=== PATIENT | female | born 1960 | race Caucasian/White ===

== ENCOUNTER 2020-02-22 12:53 | Outpatient (CLI) | payer BC, SELFPAY ==
--- NOTE | 2020-02-22 13:30 | USCV_ITS ---
Charlene Humphries Age: 59 Gender: F : 1960 Exam Date: 02/22/2020 13:05 Ordering Phys: Matthieu Gonzalez MD ([email or web address]) Technologist: Roberto De Los Santos Exam Location: [facility] [place]ication: SOB BP: 120 / 73 HR: 64 Rhythm: Sinus Technical Quality: Fair MEASUREMENTS (Male / Female) Normal Values 2D ECHO LV Diastolic Diameter PLAX 4.9 cm 4.2 - 5.9 / 3.9 - 5.3 cm LV Systolic Diameter PLAX 2.9 cm IVS Diastolic Thickness 0.8 cm 0.6 - 1.0 / 0.6 - 0.9 cm IVS Systolic Thickness 1.3 cm LVPW Diastolic Thickness 1.0 cm 0.6 - 1.0 / 0.6 - 0.9 cm LVPW Systolic Thickness 1.2 cm LVOT Diameter 2.1 cm LV Ejection Fraction 2D Teich 71.0 % LV Ejection Fraction MOD 2C 55.9 % LV Ejection Fraction 2C AL 54.5 % LA Diameter 3.2 cm LA Width 3.4 cm LA Height 4.8 cm RA Width 2.8 cm RA Height 4.3 cm M-MODE LV Diastolic Diameter MM 4.9 cm 4.2 - 5.9 / 3.9 - 5.3 cm LV Systolic Diameter MM 3.4 cm LV Ejection Fraction MM Teich 59.9 % IVS Diastolic Thickness MM 1.0 cm 0.6 - 1.0 / 0.6 - 0.9 cm IVS Systolic Thickness MM 1.3 cm LVPW Diastolic Thickness MM 1.0 cm 0.6 - 1.0 / 0.6 - 0.9 cm LVPW Systolic Thickness MM 1.6 cm RV Diastolic Diameter MM 1.5 cm Aortic Annulus Diameter 3.5 cm LA Ao Ratio MM 1.0 MV E Point Septal Separation 0.7 cm DOPPLER AV Peak Velocity 151.0 cm/s LVOT Peak Velocity 89.0 cm/s AV Area Cont Eq vti 2.1 cm squared AV Area Cont Eq pk 2.0 cm squared MV Area PHT 5.0 cm squared Mitral E to A Ratio 1.0 MV E' Velocity 52.0 cm/s Mitral E to MV E' Ratio 8.5 Mitral E to LV E' Lateral Ratio 7.6 Mitral E to LV E' Septal Ratio 9.7 TR Peak Velocity 134.7 cm/s TR Peak Gradient 7.3 mmHg TV Peak E Velocity 89.0 cm/s Right Atrial Pressure 3.0 mmHg Pulmonary Artery Systolic Pressu 10.3 mmHg PV Peak Velocity 99.0 cm/s FINDINGS Left Ventricle Normal left ventricular cavity size. Normal left ventricular systolic function. No regional wall motion abnormalities. Left ventricular ejection fraction is estimated at 60 %. Mild left ventricular hypertrophy. Grade I/IV diastolic dysfunction (abnormal relaxation filling pattern), normal to mildly elevated filling pressures. Right Ventricle The right ventricle is normal in size and function. Right Atrium The right atrium is normal in size. Left Atrium The left atrium is normal in size. Mitral Valve Structurally normal mitral valve without significant stenosis or prolapse. There is no mitral regurgitation. Aortic Valve Moderate aortic valve calcification. No aortic valve stenosis. No aortic valve regurgitation. Tricuspid Valve Structurally normal tricuspid valve without significant stenosis or regurgitation. Pulmonary artery systolic pressure is normal. Pulmonic Valve Structurally normal pulmonic valve without significant stenosis. There is no pulmonic regurgitation. Pericardium Normal pericardium without effusion. Aorta Normal ascending aorta dimension. CONCLUSIONS 1-Normal left ventricular cavity size. Normal left ventricular systolic function. No regional wall motion abnormalities. Left ventricular ejection fraction is estimated at 60 %. Mild left ventricular hypertrophy. Grade I/IV diastolic dysfunction (abnormal relaxation filling pattern), normal to mildly elevated filling pressures. 2-Moderate aortic valve calcification. No aortic valve stenosis. No aortic valve regurgitation. 3-There is no pericardial effusion. 4-No significant valve abnormalities. 5-Pulmonary artery systolic pressure is within normal limits. 6-Right atrial pressure is around 5 mm of mercury. 7-There are no prior echocardiogram studies to compare. Matthieu Gonzalez MD (Electronically Signed) Final Date: 22 February 2020 18:20 S
== END 2020-02-22 12:54 | disposition home or self-care (01) ==
LOC: US 12:55
PROVIDERS: PCP Nurse Practitioner Family; Visit Provider Internal Medicine Cardiovascular Disease
DX: R55 Syncope and collapse (principal); R06.02 Shortness of breath; I70.0 Atherosclerosis of aorta
CPT/HCPCS: 93306

== ENCOUNTER → 2020-05-30 10:01 | Outpatient (BNVA) | payer OTHER, SELFPAY | PROVIDERS: PCP Nurse Practitioner Family; Visit Provider Surgery | DX: Z20.822 Contact with and (suspected) exposure to COVID-19 (principal); Z01.812 Encounter for preprocedural laboratory examination | CPT/HCPCS: 87635 ==

== ENCOUNTER 2020-06-06 07:29 | Day surgery (SDC) | payer OTHER, SELFPAY ==
--- NOTE | 2020-06-06 07:48 | W.PM.OPSFHP ---
Same Day Surgery H&P Indication for Procedure/HPI DATE OF PROCEDURE: June 06, 2020 CHIEF COMPLAINT/INDICATIONFOR SURGICAL PROCEDURE: Screening colonoscopy PREOP DIAGNOSIS: Screening colonoscopy PLANNED PROCEDRUE: Operation Date: 06/06/20 08:30 Proposed Procedures p Colonoscopy 17065 z12.11(Not Applicable) - Teddy Llamas MD This is a pleasant 60 years old female patient referred to my practice for colonoscopy screening. She reports she had 30 years ago and there were 3 polyps removed at that time. She denies any bleeding per rectum or history of weight loss yet she does report her father had history of colon cancer at the age of 80 and her cousin of colon cancer at the age of 61. ROS All systems have been reviewed negative except as per the above or per problem list Medications/Allergies* Home Medications Medication Instructions Recorded Confirmed Type alprazolam 0.5 mg tablet 0.5 mg PO BID tab 01/27/20 06/06/20 History amlodipine 5 mg tablet 5 mg PO DAILY 01/27/20 06/06/20 History buspirone 10 mg tablet 10 mg PO BID 01/27/20 06/06/20 History fexofenadine-pseudoephedrine ER 1 tab PO QAM 01/27/20 06/06/20 History 180 mg-240 mg tablet,ext.release 24 hr glucosamine-chondroitin 250 mg-200 2 tab PO DAILY tab 01/27/20 06/06/20 History mg tablet vitamin B complex 1 tab PO DAILY 01/27/20 06/06/20 History Allergies/Adverse Reactions Allergy/AdvReac Type Severity Reaction Status Date / Time No Known Allergies Allergy Unverified 06/06/20 07:49 Pertinent History/Comorbid Conditions* Medical History (Updated 01/31/20 @ 13:05 by Matthieu Gonzalez MD) HTN (hypertension) Hyperlipidemia LDL goal <100 Family History (Updated 01/27/20 @ 09:22 by Adilene Carr LPN) Diabetes Sister Hearing loss Father Cancer Father Hypertension Sister Mother Social History Smoking and tobacco status: current every day smoker cigarettes Packs smoked per day: 1 Years cigarettes smoked: 45 Pertinent Exam Findings alert, oriented x 3, clear to auscultation bilaterally, regular rate & rhythm and procedure specific exam findings (Abdominal examination nontender nondistended soft) Recommendations Surgery/Procedure today (Colonoscopy possible biopsy and possible polypectomy) Other Plans: Plan of care; After thorough history and physical examination and reviewing the chart, plan to perform screening colonoscopy. I discussed with the patient in details the risks,benefits,alternatives and indications.The risk of aspiration, bleeding, soft tissue injury, perforation of the colon and other potential concomitant complications were explained to the patient in details,also the potential need for Laproscoy/Laparotomy to repair any related complications including but not limited to colectomy and or Closotomy.The patient understood this well and did agree to proceed. Rationale was carefully and clearly discussed with the patient.Appropriate informed consent have been reviewed and signed All questions have been answered and all concerns have been addressed to patient's satisfaction. Verbal and written Instructions were given to the patient for colonoscopy prep Coding Level of Care Code Acute Machine Bobbin Winder for Navya Melendez
[2020-06-06] MEDS: sodium chloride 0.9% 1,000 ML 30 ML IV (07:59)
[2020-06-06 08:01] VITALS: BP 167/72; PULSE 68; RESP 18; TEMP 36.2; O2SAT 99
--- NOTE | 2020-06-06 08:13 | ANES.PREANE2 ---
Pre-Anesthetic Assessment Pre-Anesthetic Assessment: Height/Weight: Height 1.7 m Weight 76.657 kg Temp Pulse Resp BP Pulse Ox 97.2 F L 68 18 167/72 99 06/06/20 08:01 06/06/20 08:01 06/06/20 08:01 06/06/20 08:01 06/06/20 08:01 Preop Diagnosis: Screening colonoscopy Proposed Procedure: Operation Date: 06/06/20 08:30 Proposed Procedures p Colonoscopy 17663 z12.11(Not Applicable) - Teddy Llamas MD Was Beta Shana taken within 24 hours: N/A Last intake: Intake Last Liquid Date 06/05/20 Last Liquid Time 21:00 Last Solid Date 06/04/20 Last Solid Time 18:00 Social: Social History: Tobacco and No alcohol Exam: Pre-Anes Outpt Exam: alert, oriented x 3 and regular rate & rhythm Additional Exam Findings (including area of procedure): BBS decreased, +murmur Airway: Submandibular: WNL Cervical ROM: WNL MP: 2 Dentition: Full Pulmonary: Pulmonary: COPD CV/HEM: CV/HEM: HTN, Murmur (Mod ) and PVD Neuropsych: Neuropsych: Anxiety Anesthetic Plan: ASA status: 3 Anesthesia: MAC Risk of > 500 ml blood loss (7ml/kg in children): No Meds/Allergies Current Medications: Current Medications Generic Name Dose Route Start Last Admin Trade Name Freq PRN Reason Stop Dose Admin Sodium Chloride 1,000 mls @ 30 ml s/hr 06/06/20 08:00 06/06/20 07:59 Sodium Chloride 0.9% IV 06/07/20 07:59 30 mls/hr .Q24H DILCIA Administration PFSH Anesthesia PFSH: Medical History (Updated 01/31/20 @ 13:05 by Matthieu Gonzalez MD) HTN (hypertension) Hyperlipidemia LDL goal <100 Family History Sister Diabetes Hypertension Mother Hypertension Father Cancer Hearing loss Social History Smoking and tobacco status: current every day smoker cigarettes Packs smoked per day: 1 Years cigarettes smoked: 45 Data Anesthesia Cardiac Studies: No Data to Display
[2020-06-06 09:04] VITALS: BP 117/61; PULSE 84; RESP 14; TEMP 36.4; O2SAT 100
[2020-06-06 09:19] VITALS: BP 133/67; PULSE 72; RESP 16; O2SAT 99
--- NOTE | 2020-06-06 09:42 | ANE.PACU2 ---
Inpatient post-anesthesia follow up: Airway intact: Yes Vital signs: Temperature 97.6 F Pulse Rate 72 Respiratory Rate 16 Blood Pressure 133/67 Pulse Oximetry 99 Oxygen Delivery Me thod Room Air Oxygen Flow Rate Fraction of Inspir ed Oxygen Hydration adequate: Yes Nausea and vomiting: No Pain level: 1 Mental status: Baseline
== END 2020-06-06 09:35 | disposition home or self-care (01) ==
PROVIDERS: PCP Nurse Practitioner Family; Visit Provider Surgery
PROC: 0DJD8ZZ Inspection of Lower Intestinal Tract, Via Natural or Artificial Opening Endoscopic (ICD-10-PCS; CPT 45378; principal; 2020-06-06 08:30)
DX: Z12.11 Encounter for screening for malignant neoplasm of colon (principal); D12.2 Benign neoplasm of ascending colon; D12.0 Benign neoplasm of cecum; D12.5 Benign neoplasm of sigmoid colon; I10 Essential (primary) hypertension; E78.5 Hyperlipidemia, unspecified; F17.210 Nicotine dependence, cigarettes, uncomplicated; Z86.010 Personal history of colon polyps; J44.9 Chronic obstructive pulmonary disease, unspecified; F41.9 Anxiety disorder, unspecified
CPT/HCPCS: 12345; 45385; 88305; J2704; J7030

== ENCOUNTER → 2022-07-25 11:50 | Outpatient (BNVA) | payer OTHER, SELFPAY | PROVIDERS: PCP Nurse Practitioner Family; Visit Provider Internal Medicine | DX: I10 Essential (primary) hypertension (principal) | CPT/HCPCS: 36415; 73120; 80053; 84155; 84165; 85025; 85651; 86140; 86160; 86162; 86200; 86235; 86255; 86376; 86431; 86704; 86803; 87340 ==

== ENCOUNTER → 2024-10-19 13:57 | Outpatient (BNVA) | payer MEDICARE, SELFPAY | PROVIDERS: PCP Nurse Practitioner Family; Visit Provider Podiatrist Foot & Ankle Surgery | DX: E11.42 Type 2 diabetes mellitus with diabetic polyneuropathy (principal); M21.41 Flat foot [pes planus] (acquired), right foot; M21.42 Flat foot [pes planus] (acquired), left foot; F17.219 Nicotine dependence, cigarettes, with unspecified nicotine-induced disorders; I87.2 Venous insufficiency (chronic) (peripheral) | CPT/HCPCS: 99204 ==

== ENCOUNTER 2024-12-07 09:17 | Outpatient (CLI) | payer MEDICARE, SELFPAY | END 2024-12-07 09:18 | disposition home or self-care (01) | LOC: SPT 09:18 | PROVIDERS: PCP Nurse Practitioner Family; Visit Provider Podiatrist Foot & Ankle Surgery | DX: Z46.89 Encounter for fitting and adjustment of other specified devices (principal); E11.42 Type 2 diabetes mellitus with diabetic polyneuropathy | CPT/HCPCS: L3030 ==